=== PATIENT | female | born 1990 | race Caucasian/White ===

== ENCOUNTER 2016-05-14 14:54 | Emergency (ER) | payer OTHER ==
[2016-05-14] MEDS ORDERED: CEPHALEXIN 250 MG CAPSULE PO STA (15:59)
[2016-05-14] MEDS ORDERED: CEPHALEXIN 250 MG CAPSULE PO ONE (16:01)
== END 2016-05-14 16:06 | disposition home or self-care (01) ==
DX: N39.0 Urinary tract infection, site not specified (principal)
CPT/HCPCS: 81001; 81025; 99283; A9270

== ENCOUNTER 2017-03-28 13:46 | Emergency (ER) | payer OTHER ==
[2017-03-28] MEDS ORDERED: ONDANSETRON ODT 4 MG TABLET TL STA (15:04)
[2017-03-28] MEDS ORDERED: guaiFENesin/DEXTROMETHORPHAN 10 ML UDC PO STA (15:04)
[2017-03-28] MEDS ORDERED: IBUPROFEN 400 MG TABLET PO STA (15:04)
--- NOTE | 2017-03-28 15:06 | ED Physician Documentation ---
History of Present Illness - Stated complaint Stated Complaint: FLU LIKE SX - Chief complaint Chief Complaint: General - Additonal information Additional information: hx from pt 26 y/o f denies preg recent cough now with fever body aches nausea as well no travel Review of Systems Constitutional: reports: Fever, Chills, Myalgias, Fatigue Respiratory: reports: Cough GI: reports: Nausea : denies: Now EGA Immunocompromised: denies: Immunocompromised PD PAST MEDICAL HISTORY - Past Medical History Past Medical History: Yes Cardiovascular: High cholesterol Other Past Medical History: Being treated for Laten TB - Past Surgical History 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 HEENT: Tonsil/Adenoidectomy - Present Medications Home Medications: Ambulatory Orders Medication Instructions Recorded Confirmed Atorvastatin Calcium 20 mg PO DAILY PM 03/28/17 03/28/17 Benzonatate [Tessalon] 100 mg PO TID PRN #20 capsule 03/28/17 Ondansetron Odt [Zofran] 4 mg TL Q6H PRN #10 tablet 03/28/17 guaiFENesin/DEXTROMETHORPHAN 10 ml PO Q6H PRN #120 ml 03/28/17 [Robitussin Dm] - Allergies Allergies/Adverse Reactions: Allergies Allergy/AdvReac Type Severity Reaction Status Date / Time Penicillins Allergy Unknown Verified 03/28/17 13:50 - Social History Does the pt smoke?: No Smoking Status: Never smoker Does the pt drink ETOH?: No Does the pt have substance abuse?: No - Immunizations Immunizations are current?: Yes PD ED PE NORMAL - Vitals Vital signs reviewed: Yes - HEENT HEENT: Ears normal, Moist mucous membranes, Pharynx benign - Neck Neck: Supple, no meningeal sign - Cardiac Cardiac: RRR - Respiratory Respiratory: No respiratory distress, Clear bilaterally - Abdomen Abdomen: Soft, Non tender - Derm Derm: Normal color - Extremities Extremities: Normal ROM s pain - Neuro Neuro: Alert and oriented X 3 Results - Vitals Vitals: Vital Signs - 24 hr 03/28/17 13:48 Temperature 36.5 C Heart Rate 100 Respiratory 18 Rate Blood Pressure 142/83 H O2 Saturation 100 Oxygen O2 Source Room air - Labs Labs: Laboratory Tests 03/28/17 14:36 Influenza A (Rapid) Negative Influenza B (Rapid) Negative Influenza Types A,B Ag - - Rads (name of study) CXR Radiology: See rad report (no acute) Departure - Departure Disposition: 01 Home, Self Care Clinical Impression: Viral syndrome Condition: Good Instructions: ED Viral Syndrome Follow-Up: Johann Wilson DO [Primary Care Provider] - Prescriptions: Benzonatate [Tessalon] 100 mg PO TID PRN #20 capsule PRN Reason: to ease cough guaiFENesin/DEXTROMETHORPHAN [Robitussin Dm] 10 ml PO Q6H PRN #120 ml PRN Reason: Cough Ondansetron Odt [Zofran] 4 mg TL Q6H PRN #10 tablet PRN Reason: Nausea / Vomiting Comments: The xray and the flu swabs were both fine. You likely have a viral infection. This does not make you any less ill, but means antibiotics won't help I have prescribed medications to ease your symptoms as well as a note for work Forms: Activity restrictions
--- NOTE | 2017-03-28 15:57 | XRAY Report ---
EXAM: CHEST RADIOGRAPHY EXAM DATE: 03/28/2017 03:28 PM. CLINICAL HISTORY: Cough fever. COMPARISON: None. TECHNIQUE: 2 views. FINDINGS: Lungs/Pleura: No focal opacities evident. No pleural effusion. No pneumothorax. Normal volumes. Mediastinum: Heart and mediastinal contours are unremarkable. Other: None. IMPRESSION: No acute intrathoracic plain film abnormality. [facility] Referring Provider Line: [phone] SITE ID: [id number]
[2017-03-28 16:30] VITALS: BP 116/65
== END 2017-03-28 16:30 | disposition home or self-care (01) ==
LOC: ED 13:46
DX: B34.9 Viral infection, unspecified (principal); E78.00 Pure hypercholesterolemia, unspecified
CPT/HCPCS: 71046; 87275; 87276; 99283; A9270

== ENCOUNTER 2017-05-19 18:26 | Emergency (ER) | payer OTHER ==
--- NOTE | 2017-05-19 20:14 | ED Physician Documentation ---
History of Present Illness - Stated complaint Stated Complaint: NUMBNESS/TINGLING BL HANDS/FACE - Chief complaint Chief Complaint: General - History obtained from History obtained from: Patient - History of Present Illness Timing: Today Pain level now: 6 (GUTIERREZ) Improved by: no ameliorating factors Worsened by: no exacerbating factors - Additonal information Additional information: c/o bilateral numbness and tingling of extremities and face x several hours, onset while at rest at work. has developed right-sided headache after arriving to ED, has had similar headaches many times before. The numbness and tingling today is the third such episode this week, although these just started this week. Review of Systems Constitutional: denies: Fever Eyes: denies: Loss of vision, Decreased vision Musculoskeletal: denies: Neck pain, Back pain Neurologic: reports: Numbness, Headache. 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 - Present Medications Home Medications: Ambulatory Orders Medication Instructions Recorded Confirmed B6/Levomefolate/B12/Ala/If 05/19/17 [Abatrex with Ala Tablet] Inh Treatment For Latent Tb 05/19/17 Iron,Carbonyl [Iron Chews] 05/19/17 - Allergies Allergies/Adverse Reactions: Allergies Allergy/AdvReac Type Severity Reaction Status Date / Time Penicillins Allergy Unknown Verified 03/28/17 13:50 - Social History Does the pt smoke?: No Smoking Status: Never smoker Does the pt drink ETOH?: No Does the pt have substance abuse?: No - Immunizations Immunizations are current?: Yes PD ED PE NORMAL - Vitals Vital signs reviewed: Yes - General General: Alert and oriented X 3, No acute distress, Well developed/nourished - HEENT HEENT: PERRL, EOMI, Moist mucous membranes - Neck Neck: Supple, no meningeal sign - Cardiac Cardiac: RRR, No murmur - Respiratory Respiratory: No respiratory distress, Clear bilaterally - Neuro Neuro: Alert and oriented X 3, 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, No motor deficit, No sensory deficit, Normal speech Eye Opening: Spontaneous Motor: Obeys Commands Verbal: Oriented GCS Score: 15 Results - Vitals Vitals: Vital Signs - 24 hr 05/19/17 05/19/17 18:31 22:21 Temperature 36.5 C 36.6 C Heart Rate 78 65 Respiratory 18 16 Rate Blood Pressure 136/87 H 129/84 H O2 Saturation 100 100 Oxygen O2 Source Room air - Labs Labs: Laboratory Tests 05/19/17 05/19/17 05/19/17 18:36 20:36 20:36 WBC 11.2 H RBC 4.76 Hgb 12.3 Hct 37.6 MCV 79.0 L MCH 25.7 L MCHC 32.6 RDW 15.6 H Plt Count 443 MPV 7.1 L Neut # 6.1 Lymph # 4.0 H [place] # 0.5 Eos # 0.4 Baso # 0.1 Absolute Nucleated RBC 0.00 Nucleated RBC % 0.0 Sodium 136 Potassium 3.3 L Chloride 102 Carbon Dioxide 26 Anion Gap 8.0 BUN 10 Creatinine 0.5 Estimated GFR (MDRD) 148 Glucose 101 H POC Whole Bld Glucose 81 Calcium 9.4 PD MEDICAL DECISION MAKING - ED course Complexity details: reviewed results, re-evaluated patient, considered differential, d/w patient Departure - Departure Disposition: 01 Home, Self Care Clinical Impression: Paresthesia, Hypokalemia Condition: Good Instructions: ED Potassium Deficiency, ED Paraesthesias Follow-Up: Johann Wilson DO [Primary Care Provider] - Discharge Date/Time: 05/19/17 22:40
[2017-05-19 20:44] LABS: BASOPHILS # (AUTO) 0.1 10^3/uL (0.0-0.1); BASOPHILS % (AUTO) 0.8 %; EOSINOPHILS # (AUTO) 0.4 10^3/uL (0.0-0.7); EOSINOPHILS % (AUTO) 3.5 %; HGB - HEMOGLOBIN 12.3 g/dL (12.0-16.0); LYMPHOCYTES % (AUTO) 35.9 %; MEAN CORPUSCULAR HEMOGLOBIN 25.7 pg (27.0-31.0); MEAN CORPUSCULAR HGB CONC 32.6 g/dL (32.0-36.0); MEAN PLATELET VOLUME 7.1 fL (7.9-10.8); MONOCYTES # (AUTO) 0.5 10^3/uL (0.0-1.0); MONOCYTES % (AUTO) 4.8 %; NEUTROPHILS # (AUTO) 6.1 10^3/uL (1.5-6.6); PLT - PLATELET COUNT 443 10^3/uL (130-450); RED BLOOD COUNT 4.76 10^6/uL (4.20-5.40); RED CELL DISTRIBUTION WIDTH 15.6 % (12.0-15.0); WHITE BLOOD COUNT 11.2 x10^3/uL (4.8-10.8)
[2017-05-19 20:50] LABS: CALCIUM 9.4 mg/dL (8.5-10.3); CREATININE 0.5 mg/dL (0.4-1.0)
[2017-05-19 22:22] VITALS: BP 129/84
[2017-05-19] MEDS ORDERED: POTASSIUM BICARB 25 MEQ TABLET PO STA (22:36)
== END 2017-05-19 22:40 | disposition home or self-care (01) ==
LOC: ED 18:26
DX: R20.2 Paresthesia of skin (principal); E87.6 Hypokalemia; E78.00 Pure hypercholesterolemia, unspecified
CPT/HCPCS: 36415; 80048; 85025; 99283; A9270

== ENCOUNTER 2017-07-14 14:43 | Outpatient (CLI) | payer OTHER | END 2017-07-14 14:44 | disposition home or self-care (01) | LOC: SC 14:43 | PROVIDERS: ATTEND Internal Medicine Pulmonary Disease | DX: R06.83 Snoring (principal); G31.84 Mild cognitive impairment of uncertain or unknown etiology; G47.10 Hypersomnia, unspecified; I10 Essential (primary) hypertension; F41.9 Anxiety disorder, unspecified; F32.9 Major depressive disorder, single episode, unspecified; F39 Unspecified mood [affective] disorder | CPT/HCPCS: 99203; 99212 ==

== ENCOUNTER 2017-08-17 19:20 | Outpatient (CLI) | payer OTHER | END 2017-08-17 19:21 | disposition home or self-care (01) | LOC: SC 19:20 | PROVIDERS: ATTEND Internal Medicine Pulmonary Disease | DX: G47.10 Hypersomnia, unspecified (principal) | CPT/HCPCS: 95810 ==

== ENCOUNTER 2017-11-25 17:48 | Emergency (ER) | payer OTHER ==
[2017-11-25 17:56] VITALS: BP 125/77
[2017-11-25] MEDS ORDERED: HYDROcod/ACETAM 5/325 MG TABLET PO STA (18:03)
[2017-11-25] MEDS ORDERED: DEXAMETHASONE 10 MG/ML VIAL PO STA (18:03)
--- NOTE | 2017-11-25 18:07 | ED Physician Documentation ---
PD HPI BACK PAIN - Stated complaint Stated Complaint: BACK PX - Chief complaint Chief Complaint: Back Pain - History obtained from History obtained from: Patient - History of Present Illness Timing - onset: Other (has had back pain for years, but worse today.) Timing - details: Gradual onset Pain level max: 8 Pain level now: 8 Location: Lower, Right, Left Quality: Pain, Spasm, Sharp, Similar to prior episodes Associated symptoms: No: Fever, Weakness, Numbness, Incontinent of urine, Unable to urinate, Hematuria, Incontinent of stool Improves with: Rest Worsened by: Movement Similar symptoms before: Has not had sx before (has a history of DDD and bulging discs.) Recently seen: Not recently seen Review of Systems Ten Systems: 10 systems reviewed and negative Constitutional: denies: Fever, Chills Nose: denies: Rhinorrhea / runny nose, Congestion Cardiac: denies: Chest pain / pressure, Palpitations Respiratory: denies: Dyspnea, Cough, Wheezing GI: denies: Abdominal Pain, Nausea, Vomiting, Diarrhea Skin: denies: Rash Musculoskeletal: denies: Neck pain, Back pain Neurologic: denies: Focal weakness, Numbness, Headache PD PAST MEDICAL HISTORY - Past Medical History Past Medical History: Yes Cardiovascular: High cholesterol Respiratory: Tuberculosis - Past Surgical History 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/Adenoidectomy - Present Medications Home Medications: Ambulatory Orders Medication Instructions Recorded Confirmed B6/Levomefolate/B12/Ala/If 05/19/17 [Abatrex with Ala Tablet] Inh Treatment For Latent Tb 05/19/17 Iron,Carbonyl [Iron Chews] 05/19/17 DULoxetine [Cymbalta] 1 tab PO DAILY 11/25/17 11/25/17 Hydrocodone/Acetaminophen 1 - 2 each PO Q6H PRN #14 tablet 11/25/17 [Hydrocodon-Acetaminophen 5-325] Meloxicam [Mobic] 15 mg PO DAILY PRN #20 tablet 11/25/17 Methylprednisolone [Medrol] 4 mg PO DAILY #1 tab.ds.pk 11/25/17 - Allergies Allergies/Adverse Reactions: Allergies Allergy/AdvReac Type Severity Reaction Status Date / Time Penicillins Allergy Unknown Verified 11/25/17 17:56 - Social History Does the pt smoke?: No Smoking Status: Never smoker Does the pt drink ETOH?: No Does the pt have substance abuse?: No - Immunizations Immunizations are current?: Yes PD ED PE NORMAL - Vitals Vital signs reviewed: Yes - General General: Alert and oriented X 3, No acute distress - HEENT HEENT: Moist mucous membranes - Neck Neck: Supple, no meningeal sign - Cardiac Cardiac: RRR, Strong equal pulses - Respiratory Respiratory: No respiratory distress, Clear bilaterally - Abdomen Abdomen: Soft, Non tender, Non distended - Back Back: No spinal TTP (no stepoffs or deformity.) - Derm Derm: Warm and dry - Extremities Extremities: Other (Normal bilateral lower extremity patellar and ankle jerk reflexes. Normal great toe extension bilaterally. no saddle anesthesia) - Neuro Neuro: Alert and oriented X 3, No motor deficit, No sensory deficit - Psych Psych: Normal mood, Normal affect Results - Vitals Vitals: Vital Signs - 24 hr 11/25/17 17:53 Temperature 36.5 C Heart Rate 70 Respiratory 16 Rate Blood Pressure 125/77 O2 Saturation 97 Oxygen O2 Source Room air PD MEDICAL DECISION MAKING - ED course Complexity details: considered differential (No cauda equina, no spinal epidural abscess, no fracture, no aortic dissection or evidence of aneursym rupture), d/w patient ED course: Patient is a 27-year-old female who presents to the emergency department with acute on chronic low back pain. Appears to be sciatic in nature. Given Vicodin here as well as dexamethasone. Will place on a Medrol Dosepak as well as Mobic and Vicodin for home. She is ambulating without difficulty. No evidence of cauda equina. No evidence of epidural abscess. Her last MRI revealed bulging disks with sclerotic features and L3, but stable from 3 years prior. Patient counseled regarding signs and symptoms for which I believe and urgent re- evaluation would be necessary. Patient with good understanding of and agreement to plan and is comfortable going home at this time This document was made in part using voice recognition software. While efforts are made to proofread this document, sound alike and grammatical errors may occur. - Sepsis Event Vital Signs: Vital Signs - 24 hr 11/25/17 17:53 Temperature 36.5 C Heart Rate 70 Respiratory 16 Rate Blood Pressure 125/77 O2 Saturation 97 Oxygen O2 Source Room air Departure - Departure Disposition: 01 Home, Self Care Clinical Impression: Sciatica Qualifiers: Laterality: bilateral Qualified Code(s): M54.31 - Sciatica, right side; M54.32 - Sciatica, left side Condition: Good Instructions: ED Sciatica Follow-Up: Johann Wilson DO [Primary Care Provider] - Within 1 week Prescriptions: Hydrocodone/Acetaminophen [Hydrocodon-Acetaminophen 5-325] 1 - 2 each PO Q6H PRN #14 tablet PRN Reason: pain Meloxicam [Mobic] 15 mg PO DAILY PRN #20 tablet PRN Reason: pain Methylprednisolone [Medrol] 4 mg PO DAILY #1 tab.ds.pk Comments: Follow-up with your doctor within the next week for further evaluation and care. Return if you worsen. This should improve with the steroids. Do not drink alcohol or drive while on narcotic pain medicine. Note that many narcotic pain relievers also contain tylenol/acetaminophen. Please ensure that your total dose of acetaminophen from all sources does not exceed 3 grams (3000mg) per day. You may constipated on this medication, take a stool softener such as "Colace" twice a day while you are on it. Also recommend a [id number] laxative such as senna or MiraLAX any day that you do not have a bowel movement. If you received narcotic pain medication in the emergency department, do not drive or operate machinery for the next 24 hours.
== END 2017-11-25 18:24 | disposition home or self-care (01) ==
LOC: ED 17:48
DX: M54.31 Sciatica, right side (principal); M54.32 Sciatica, left side; G89.29 Other chronic pain; E78.00 Pure hypercholesterolemia, unspecified
CPT/HCPCS: 99283; A9270

== ENCOUNTER 2018-09-13 20:00 | Outpatient (CLI) | payer OTHER | END 2018-09-13 20:01 | disposition critical access hospital (66) | LOC: EMS 20:00 | PROVIDERS: ATTEND Surgery | DX: R45.851 Suicidal ideations (principal) | CPT/HCPCS: A0425; A0429 ==

== ENCOUNTER 2018-09-13 20:12 | Emergency (ER) | payer OTHER ==
--- NOTE | 2018-09-13 20:47 | ED Physician Documentation ---
PD HPI MHE - Stated complaint Stated Complaint: SI - Chief complaint Chief Complaint: MHE - History obtained from History obtained from: Patient - History of Present Illness Primary symptom: Suicidal ideation. No: Self harm - other Timing - onset: Today Contributing factors: Family, Sig other (States she has a history of depression in the past. She got into an argument with her and mother and got upset. She locked herself in the bathroom. Her broke the door down and found her with a belt in her hand. There was concern that she was going to try to hang herself. The patient states she had some ideation of that did not make any attempt. The police had been called and where there at the same time and with the concern for her tearfulness and anxiety at the time, mother brought here for evaluation under a police hold. She did not make any statements about trying to hurt her self or such but did have some ideation of it.). No: Substance abuse - ETOH, Substance abuse - drugs Similar symptoms before: Diagnosis (depression and anxiety. No current counseling. 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 - Present Medications Home Medications: Ambulatory Orders Medication Instructions Recorded Confirmed B6/Levomefolate/B12/Ala/If 05/19/17 [Abatrex with Ala Tablet] Inh Treatment For Latent Tb 05/19/17 Iron,Carbonyl [Iron Chews] 05/19/17 DULoxetine [Cymbalta] 1 tab PO DAILY 11/25/17 11/25/17 Hydrocodone/Acetaminophen 1 - 2 each PO Q6H PRN #14 tablet 11/25/17 [Hydrocodon-Acetaminophen 5-325] Meloxicam [Mobic] 15 mg PO DAILY PRN #20 tablet 11/25/17 Methylprednisolone [Medrol] 4 mg PO DAILY #1 tab.ds.pk 11/25/17 - Allergies Allergies/Adverse Reactions: Allergies Allergy/AdvReac Type Severity Reaction Status Date / Time Penicillins Allergy Unknown Verified 09/13/18 20:19 - Social History Does the pt smoke?: No Smoking Status: Never smoker Does the pt drink ETOH?: Yes ETOH Use: Wine Does the pt have substance abuse?: Yes Substance Use and Type: Marijuana - Immunizations Immunizations are current?: Yes - POLST Patient has POLST: No PD ED PE NORMAL - Vitals Vital signs reviewed: Yes - General General: Alert and oriented X 3, No acute distress, Well developed/nourished, Other (calm and pleasant to talk with.) - Neck Neck: Supple, no meningeal sign, No adenopathy - Cardiac Cardiac: RRR, No murmur - Respiratory Respiratory: Clear bilaterally - Abdomen Abdomen: Soft, Non tender - Derm Derm: Normal color, Warm and dry - Neuro Neuro: Alert and oriented X 3, No motor deficit, Normal speech Eye Opening: Spontaneous Motor: Obeys Commands Verbal: Oriented GCS Score: 15 - Psych Psych: Normal mood, Normal affect Results - Vitals Vitals: Vital Signs - 24 hr 09/13/18 20:17 Temperature 36.7 C Heart Rate 86 Respiratory 19 Rate Blood Pressure 130/77 O2 Saturation 100 Oxygen O2 Source Room air - Labs Labs: Laboratory Tests 09/13/18 09/13/18 09/13/18 21:04 21:04 21:04 WBC 10.9 H RBC 4.46 Hgb 12.2 Hct 36.6 L MCV 82.1 MCH 27.4 MCHC 33.3 RDW 13.4 Plt Count 378 MPV 9.1 Neut # (Auto) 6.5 Lymph # (Auto) 3.4 [place] # (Auto) 0.6 Eos # (Auto) 0.2 Baso # (Auto) 0.0 Absolute Nucleated RBC 0.00 Nucleated RBC % 0.0 Sodium 138 Potassium 3.4 L Chloride 101 Carbon Dioxide 23 Anion Gap 14.0 H BUN 12 Creatinine 0.6 Estimated GFR (MDRD) 118 Glucose 105 H Calcium 9.6 Total Bilirubin 0.7 AST 22 ALT 23 Alkaline Phosphatase 100 Total Protein 8.3 H Albumin 4.3 Globulin 4.0 Albumin/Globulin Ratio 1.1 Lipase 20 L TSH 2.11 Urine Color Urine Clarity Urine pH Ur Specific [place] Urine Protein Urine Glucose (UA) Urine Ketones Urine Occult Blood Urine Nitrite Urine Bilirubin Urine Urobilinogen Ur Leukocyte Esterase Ur Microscopic Review Urine Culture Comments Urine HCG, Qual Salicylates < 6.0 Urine Opiates Screen Ur Oxycodone Screen Urine Methadone Screen Ur Propoxyphene Screen Acetaminophen < 10 L Ur Barbiturates Screen Ur Tricyclics Screen Ur Phencyclidine Scrn Ur Amphetamine Screen U Methamphetamines Scrn U Benzodiazepines Scrn Urine Cocaine Screen U Cannabinoids Screen Ethyl Alcohol < 5.0 09/13/18 09/13/18 21:04 21:04 WBC RBC Hgb Hct MCV MCH MCHC RDW Plt Count MPV Neut # (Auto) Lymph # (Auto) [place] # (Auto) Eos # (Auto) Baso # (Auto) Absolute Nucleated RBC Nucleated RBC % Sodium Potassium Chloride Carbon Dioxide Anion Gap BUN Creatinine Estimated GFR (MDRD) Glucose Calcium Total Bilirubin AST ALT Alkaline Phosphatase Total Protein Albumin Globulin Albumin/Globulin Ratio Lipase TSH Urine Color YELLOW Urine Clarity CLEAR Urine pH 6.0 Ur Specific [place] <=1.005 Urine Protein NEGATIVE Urine Glucose (UA) NEGATIVE Urine Ketones NEGATIVE Urine Occult Blood TRACE-INTA Urine Nitrite NEGATIVE Urine Bilirubin NEGATIVE Urine Urobilinogen 0.2 (NORMAL) Ur Leukocyte Esterase NEGATIVE Ur Microscopic Review NOT INDICATED Urine Culture Comments NOT INDICATED Urine HCG, Qual NEGATIVE Salicylates Urine Opiates Screen NEGATIVE Ur Oxycodone Screen NEGATIVE Urine Methadone Screen NEGATIVE Ur Propoxyphene Screen NEGATIVE Acetaminophen Ur Barbiturates Screen NEGATIVE Ur Tricyclics Screen NEGATIVE Ur Phencyclidine Scrn NEGATIVE Ur Amphetamine Screen NEGATIVE U Methamphetamines Scrn NEGATIVE U Benzodiazepines Scrn NEGATIVE Urine Cocaine Screen NEGATIVE U Cannabinoids Screen POSITIVE H Ethyl Alcohol PD MEDICAL DECISION MAKING - ED course Complexity details: considered differential (The patient is calm at this point he denies suicidal ideation and states she would be comfortable at home and would not hurt herself. She is on a police hold and therefore I would like to at least have her have a phone interview with the crisis line in the [place] if not have a [facility] provider talk with her as well. Her is arrived to the ER subsequently and seems supportive.), d/w patient, d/w [employer] consultant ([facility] - who talked with pt and and felt she was not at risk of self harm.) Departure - Departure Disposition: Home, Self Care Clinical Impression: Stress reaction, Suicidal ideation Depression Qualifiers: Depression Type: major depressive disorder Major depression recurrence: unspecified whether recurrent Active/Remission status: currently active Major depression episode severity: moderate Qualified Code(s): F32.1 - Major depressive disorder, single episode, moderate Condition: Stable Record reviewed to determine appropriate education?: Yes Follow-Up: Johann Wilson DO [Primary Care Provider] - Comments: Rest at home. Drink lots of fluids. Continue usual medications. Consider counseling or family counseling to help improve communication skills and interpersonal dynamics at home.
[2018-09-13 21:11] LABS: BASOPHILS % (AUTO) 0.4 %; EOSINOPHILS # (AUTO) 0.2 10^3/uL (0.0-0.7); EOSINOPHILS % (AUTO) 2.1 %; HGB - HEMOGLOBIN 12.2 g/dL (12.0-16.0); LYMPHOCYTES # (AUTO) 3.4 10^3/uL (1.5-3.5); LYMPHOCYTES % (AUTO) 31.2 %; MEAN CORPUSCULAR HEMOGLOBIN 27.4 pg (27.0-31.0); MEAN CORPUSCULAR HGB CONC 33.3 g/dL (32.0-36.0); MEAN CORPUSCULAR VOLUME 82.1 fL (81.0-99.0); MEAN PLATELET VOLUME 9.1 fL (7.9-10.8); MONOCYTES # (AUTO) 0.6 10^3/uL (0.0-1.0); MONOCYTES % (AUTO) 5.9 %; NEUTROPHILS # (AUTO) 6.5 10^3/uL (1.5-6.6); NEUTROPHILS % (AUTO) 59.8 %; PLT - PLATELET COUNT 378 10^3/uL (130-450); RED BLOOD COUNT 4.46 10^6/uL (4.20-5.40); RED CELL DISTRIBUTION WIDTH 13.4 % (12.0-15.0); WHITE BLOOD COUNT 10.9 x10^3/uL (4.8-10.8)
[2018-09-13 21:14] LABS: MUDS CUTOFF CONCENTRATIONS CUTOFF CONC BELOW:
[2018-09-13 21:18] LABS: BILIRUBIN,URINE NEGATIVE (NEGATIVE); GLUCOSE, URINE (UA) NEGATIVE (NEGATIVE); KETONES,URINE (UA) NEGATIVE (NEGATIVE); LEUKOCYTE ESTERASE, URINE NEGATIVE (NEGATIVE); NITRITE,URINE NEGATIVE (NEGATIVE); OCCULT BLOOD,URINE TRACE-INTA (NEGATIVE); PROTEIN,URINE NEGATIVE (NEGATIVE); UROBILINOGEN,URINE 0.2 (NORMAL) E.U./dL (NORMAL)
[2018-09-13 21:20] LABS: CLARITY,URINE CLEAR (CLEAR); HCG UR QUAL NEGATIVE
[2018-09-13 21:26] LABS: BUN - BLOOD UREA NITROGEN 12 mg/dL (6-20); CARBON DIOXIDE - CO2 23 mmol/L (21-32); CHLORIDE 101 mmol/L (101-111); CREATININE 0.6 mg/dL (0.4-1.0); GFR - MDRD 118 (>89); SODIUM 138 mmol/L (135-145)
[2018-09-13 21:27] LABS: ALBUMIN 4.3 g/dL (3.2-5.5); ALBUMIN/GLOBULIN RATIO 1.1 (1.0-2.2); ALKALINE PHOSPHATASE 100 IU/L (42-121); ALT ALANINE AMINOTRANSFERASE 23 IU/L (10-60); AST ASPARTATE AMINOTRANSFERASE 22 IU/L (10-42); BILIRUBIN,TOTAL 0.7 mg/dL (0.2-1.0); CALCIUM 9.6 mg/dL (8.5-10.3); GLUCOSE 105 mg/dL (70-100); LIPASE 20 U/L (22-51); TOTAL PROTEIN 8.3 g/dL (6.7-8.2)
[2018-09-13 21:28] LABS: AMPHETAMINE SCREEN,URINE NEGATIVE (NEGATIVE); BENZODIAZEPINES SCREEN, URINE NEGATIVE (NEGATIVE); COCAINE SCREEN URINE NEGATIVE (NEGATIVE); METHADONE SCREEN, URINE NEGATIVE (NEGATIVE); METHAMPHETAMINES SCREEN, URINE NEGATIVE (NEGATIVE); OPIATE SCREEN, URINE NEGATIVE (NEGATIVE); OXYCODONE SCREEN, URINE NEGATIVE (NEGATIVE); PROPOXYPHENE SCREEN, URINE NEGATIVE (NEGATIVE); TRICYCLIC ANTIDEPRESSANT,URINE NEGATIVE (NEGATIVE)
[2018-09-13 21:41] LABS: SALICYLATE < 6.0 mg/dL
[2018-09-13 21:42] LABS: ACETAMINOPHEN < 10 ug/mL (10-30)
[2018-09-14 01:16] VITALS: BP 136/78
== END 2018-09-14 01:15 | disposition home or self-care (01) ==
LOC: EDUNIT# → EDBD → ED 20:12
DX: F32.1 Major depressive disorder, single episode, moderate (principal); R45.851 Suicidal ideations; F43.9 Reaction to severe stress, unspecified; F41.9 Anxiety disorder, unspecified
CPT/HCPCS: 36415; 80053; 80306; 80307; 80320; 80329; 81001; 81003; 81025; 83690; 84443; 85025; 87086; 99283